=== PATIENT | female | born 2000 | race Caucasian/White ===

== ENCOUNTER 2022-04-04 09:18 | Inpatient (IN) | payer MEDICAID ==
[2022-04-04] MEDS ORDERED: Lidocaine 1% 30 ML SDV INJECT PRN (10:50)
[2022-04-04] MEDS ORDERED: Acetaminophen 325 MG Tab PO PRN ×2 (10:50)
[2022-04-04] MEDS ORDERED: Methylergonovine 0.2 MG/1 ML Amp IM PRN (10:50)
[2022-04-04] MEDS ORDERED: Lactated Ringers 1,000 ML IV ONE (10:50)
[2022-04-04] MEDS ORDERED: Tranexamic Acid 1,000 MG in Sodium Chloride 0.9% 100 ML IV PRN (10:50)
[2022-04-04] MEDS ORDERED: Misoprostol 50 MCG (1/2 of 100 MCG) Tab VAG ONE ×3 (10:50→17:15)
[2022-04-04] MEDS ORDERED: Carboprost Tromethamine 250 MCG/1 ML Amp IM PRN (10:50)
[2022-04-04] MEDS ORDERED: Lactated Ringers 1,000 ML IV SCH (10:50)
[2022-04-04] MEDS ORDERED: Ondansetron 4 MG/2 ML SDV IVPUSH PRN (10:50)
[2022-04-04] MEDS ORDERED: Oxytocin/Normal Saline 30 UNIT/500 ML BAG IV SCH (10:50)
[2022-04-04] MEDS ORDERED: Sodium Chloride 0.9% 10 ML Syringe FLUSH PRN (10:50)
[2022-04-04] MEDS ORDERED: Misoprostol 400 MCG (4 X 100 MCG TAB) RECTAL PRN (10:50)
[2022-04-04] MEDS: Sodium Chloride 0.9% 10 ML Syringe FLUSH SCH (21:23)
[2022-04-04] MEDS: Misoprostol 25 MCG (1/4 of 100 MCG) Tab VAG PRN (21:55)
[2022-04-05] MEDS: Misoprostol 25 MCG (1/4 of 100 MCG) Tab VAG PRN ×2 (02:35→07:00)
[2022-04-05] MEDS: Sodium Chloride 0.9% 10 ML Syringe FLUSH SCH ×2 (06:21→09:00)
[2022-04-05] MEDS ORDERED: ePHEDrine 50 MG/ML SDV IV ONE (09:44)
[2022-04-05] MEDS ORDERED: Methylergonovine 0.2 MG/1 ML Amp IM ONE (09:44)
[2022-04-05] MEDS ORDERED: Dexamethasone 4 MG/ML SDV IV ONE (09:44)
[2022-04-05] MEDS ORDERED: Phenylephrine 1% 10 MG/ML SDV IV ONE ×2 (09:44)
[2022-04-05] MEDS ORDERED: Lactated Ringers 1,000 ML IV ONE (09:44)
[2022-04-05] MEDS ORDERED: EPINEPHrine 1 MG/ML SDV ONE ×2 (09:44)
[2022-04-05] MEDS ORDERED: Promethazine 25 MG/ML SDV ONE ×2 (09:44→22:58)
[2022-04-05] MEDS ORDERED: Sodium Chloride 0.9% 10 ML Syringe IV ONE ×2 (09:44)
[2022-04-05] MEDS ORDERED: fentaNYL 100 MCG/2 ML SDV IV ONE (09:44)
[2022-04-05] MEDS ORDERED: Ondansetron 4 MG/2 ML SDV IV ONE ×2 (09:44)
[2022-04-05] MEDS ORDERED: Morphine PF 10 MG/10 ML SDV ONE ×2 (09:44)
[2022-04-05] MEDS ORDERED: fentaNYL 100 MCG/2 ML SDV ONE ×2 (09:44→17:13)
[2022-04-05] MEDS ORDERED: Dexmedetomidine 200 MCG/2 ML SDV IV ONE ×2 (09:44)
[2022-04-05] MEDS: Nalbuphine 20 MG/1 ML Amp ONE ×2 (13:45→14:03)
[2022-04-05] MEDS ORDERED: Nalbuphine 20 MG/1 ML Amp IM ONE (13:49)
[2022-04-05] MEDS: Lactated Ringers 1,000 ML IV SCH ×2 (17:09→18:10)
[2022-04-05] MEDS: Oxytocin/Normal Saline 30 UNIT/500 ML BAG IV SCH ×2 (18:15→22:30)
[2022-04-05] MEDS ORDERED: ePHEDrine 50 MG/ML SDV IVPUSH PRN ×3 (19:34→23:26)
[2022-04-05] MEDS ORDERED: Promethazine 25 MG/ML SDV IM PRN ×2 (19:34→23:26)
[2022-04-05] MEDS ORDERED: Naloxone 2 MG/2 ML Syringe IVPUSH PRN ×2 (19:34→23:26)
[2022-04-05] MEDS ORDERED: Ondansetron 4 MG/2 ML SDV IVPUSH PRN (19:34)
[2022-04-05] MEDS ORDERED: Lactated Ringers 500 ML IV SCH ×4 (19:45→23:30)
[2022-04-05] MEDS ORDERED: ceFAZolin 2 GM in Premix Bag 1 BAG IV ONE (20:56)
[2022-04-05] MEDS ORDERED: Citric Acid/Sodium Citrate Solution 30 ML Cup PO ONE (20:56)
[2022-04-05] MEDS ORDERED: diphenhydrAMINE 50 MG/ML SDV IVPUSH PRN (20:56)
[2022-04-05] MEDS ORDERED: Lactated Ringers 1,000 ML IV SCH (21:00)
[2022-04-05] MEDS ORDERED: Ketorolac 30 MG/ML SDV IVPUSH SCH (21:00)
[2022-04-05] MEDS ORDERED: Oxytocin/Normal Saline 30 UNIT/500 ML BAG ONE ×2 (21:02→21:07)
[2022-04-05] MEDS ORDERED: Methylergonovine 0.2 MG/1 ML Amp ONE (21:03)
[2022-04-05] MEDS ORDERED: diphenhydrAMINE 50 MG/ML SDV IV PRN (23:26)
[2022-04-05] MEDS ORDERED: Ketorolac 30 MG/ML SDV IVPUSH ONE (23:29)
[2022-04-06] MEDS: Lactated Ringers 1,000 ML IV SCH (01:34)
[2022-04-06] MEDS ORDERED: Ondansetron 4 MG/2 ML SDV IVPUSH PRN (02:00)
[2022-04-06] MEDS: Ketorolac 30 MG/ML SDV IVPUSH SCH ×3 (05:58→17:57)
[2022-04-06] MEDS: Sodium Chloride 0.9% 10 ML Syringe FLUSH SCH ×2 (06:12→12:30)
[2022-04-06] MEDS: Simethicone 80 MG Tab.Chew PO SCH ×4 (06:12→17:20)
[2022-04-06] MEDS ORDERED: Furosemide 20 MG/2 ML VIAL IVPUSH ONE (06:55)
[2022-04-06] MEDS: Docusate Sodium 100 MG Cap PO PRN (08:05)
[2022-04-06] MEDS: Prenatal Multivitamin with Calcium/Folic Acid/Iron Tab PO SCH (08:33)
[2022-04-07] MEDS: Sodium Chloride 0.9% 10 ML Syringe FLUSH SCH (07:28)
[2022-04-07] MEDS: Simethicone 80 MG Tab.Chew PO SCH ×5 (07:28→19:39)
[2022-04-07] MEDS: Prenatal Multivitamin with Calcium/Folic Acid/Iron Tab PO SCH (08:30)
[2022-04-07] MEDS: Docusate Sodium 100 MG Cap PO PRN ×2 (08:31→19:40)
[2022-04-07] MEDS: Acetaminophen/oxyCODONE 325-5 MG Tab PO PRN ×3 (08:32→20:51)
[2022-04-07] MEDS: Ibuprofen 800 MG Tab PO PRN ×2 (08:32→19:40)
[2022-04-08] MEDS: Ibuprofen 800 MG Tab PO PRN (06:43)
[2022-04-08] MEDS: Acetaminophen/oxyCODONE 325-5 MG Tab PO PRN (06:43)
[2022-04-08] MEDS: Simethicone 80 MG Tab.Chew PO SCH (07:37)
== END 2022-04-08 09:45 | disposition home or self-care (01) | DRG 788 ==
LOC: DL.OB 11:16 → OBSVTOIN 11:16
PROVIDERS: ADMIT Family Medicine; ATTEND Family Medicine
PROC: 10D00Z1 Extraction of Products of Conception, Low, Open Approach (ICD-10-PCS; principal; 2022-04-04)
PROC: 10907ZC Drainage of Amniotic Fluid, Therapeutic from Products of Conception, Via Natural or Artificial Opening (ICD-10-PCS; 2022-04-04)
PROC: 3E0P7VZ Introduction of Hormone into Female Reproductive, Via Natural or Artificial Opening (ICD-10-PCS; 2022-04-04)
PROC: 10H07YZ Insertion of Other Device into Products of Conception, Via Natural or Artificial Opening (ICD-10-PCS; 2022-04-04)
PROC: 4A1HXCZ Monitoring of Products of Conception, Cardiac Rate, External Approach (ICD-10-PCS; 2022-04-04)
DX: O99.214 Obesity complicating childbirth (principal); Z3A.39 39 weeks gestation of pregnancy; Z37.0 Single live birth; O77.0 Labor and delivery complicated by meconium in amniotic fluid; O76 Abnormality in fetal heart rate and rhythm complicating labor and delivery; O72.1 Other immediate postpartum hemorrhage
CPT/HCPCS: 01961; 36415; 51702; 59025; 62320; 85027; 86850; 86900; 86901; A9270-GY; J0171; J0690; J1100; J1885; J1940; J2210; J2270; J2300; J2370; J2405; J2550; J2590; J3010; J3490; J7120; U0002

== ENCOUNTER 2023-11-12 09:46 | Inpatient (IN) | payer MEDICAID ==
[2023-11-12] MEDS ORDERED: Acetaminophen 325 MG Tab PO PRN (09:50)
[2023-11-12] MEDS ORDERED: diphenhydrAMINE 50 MG/ML SDV IVPUSH PRN (09:50)
[2023-11-12] MEDS ORDERED: Ondansetron 4 MG/2 ML SDV IVPUSH PRN (09:50)
[2023-11-12] MEDS ORDERED: ePHEDrine 50 MG/ML SDV IVPUSH PRN (09:50)
[2023-11-12] MEDS ORDERED: Carboprost Tromethamine 250 MCG/1 ML Amp IM PRN (09:50)
[2023-11-12] MEDS ORDERED: Naloxone 2 MG/2 ML Syringe IVPUSH PRN (09:50)
[2023-11-12] MEDS ORDERED: Misoprostol 400 MCG (4 X 100 MCG TAB) RECTAL PRN (09:50)
[2023-11-12] MEDS ORDERED: Methylergonovine 0.2 MG/1 ML Amp IM PRN (09:50)
[2023-11-12] MEDS ORDERED: Tranexamic Acid 1,000 MG in Sodium Chloride 0.9% 100 ML IV PRN (09:50)
[2023-11-12] MEDS: Lactated Ringers 1,000 ML IV SCH (10:11)
[2023-11-12 10:18] LABS: HEMATOCRIT 36.2 % (37.0-47.0); HEMOGLOBIN 11.7 g/dL (12.0-16.0); MEAN CORPUSCULAR HEMOGLOBIN 29.5 pg (27.0-34.0); MEAN CORPUSCULAR HGB CONC 32.3 g/dL (33.0-35.0); MEAN CORPUSCULAR VOLUME 91.4 fL (80-100); RED BLOOD CELL COUNT 3.96 10^6/uL (4.2-5.4); WHITE BLOOD CELL COUNT,WBC 10.5 10^3/uL (5.0-10.0)
[2023-11-12] MEDS ORDERED: Oxytocin/Normal Saline 30 UNIT/500 ML BAG ONE (11:22)
[2023-11-12] MEDS ORDERED: Ondansetron 4 MG/2 ML SDV ONE (11:29)
[2023-11-12] MEDS ORDERED: Dexamethasone 4 MG/ML SDV ONE (11:29)
[2023-11-12] MEDS ORDERED: Oxytocin 10 Units/1 ML SDV ONE (11:29)
[2023-11-12] MEDS ORDERED: ceFAZolin 2 GM Vial ONE (11:29)
[2023-11-12] MEDS ORDERED: ceFAZolin 1 GM Vial ONE (11:29)
[2023-11-12] MEDS ORDERED: Succinylcholine 200 MG/10 ML MDV ONE (11:30)
[2023-11-12] MEDS: Oxytocin/Normal Saline 30 UNIT/500 ML BAG IV SCH (12:43)
[2023-11-12] MEDS: Simethicone 80 MG Tab.Chew PO SCH (15:19)
[2023-11-12] MEDS: ceFAZolin 1 GM Vial IVPUSH ONE (15:20)
[2023-11-12] MEDS: Prenatal Multivitamin with Calcium/Folic Acid/Iron Tab PO SCH (15:20)
[2023-11-12] MEDS: Promethazine 25 MG/ML SDV IM ONE (15:54)
[2023-11-12] MEDS: Ketorolac 30 MG/ML SDV IVPUSH SCH (18:01)
[2023-11-13] MEDS: Docusate Sodium 100 MG Cap PO PRN (08:36)
[2023-11-13] MEDS: Ibuprofen 800 MG Tab PO PRN (15:11)
[2023-11-13] MEDS: Acetaminophen/oxyCODONE 325-5 MG Tab PO PRN (15:13)
[2023-11-14] MEDS: Acetaminophen/oxyCODONE 325-5 MG Tab PO PRN (01:20)
== END 2023-11-14 11:00 | disposition home or self-care (01) | DRG 787 ==
LOC: DL.OB 09:46 → OBSVTOIN 12:13 → DL.OB 11-14 10:59
PROVIDERS: ADMIT Family Medicine; ATTEND Family Medicine
PROC: 10D00Z1 Extraction of Products of Conception, Low, Open Approach (ICD-10-PCS; principal; 2023-11-12 12:00)
DX: O34.211 Maternal care for low transverse scar from previous cesarean delivery (principal); D62 Acute posthemorrhagic anemia; Z37.0 Single live birth; Z3A.39 39 weeks gestation of pregnancy; O90.81 Anemia of the puerperium
CPT/HCPCS: 36415; 85027; 86850; 86900; 86901; A9270-GY; J0330; J1885; J2550; J2590; J7120